=== PATIENT | female | born 2000 | race Caucasian/White ===

== ENCOUNTER 2024-02-19 02:35 | Emergency (ER) | payer MEDICAID ==
[~2024-02-19] VITALS: Ht 175.3 cm; Wt 131.0 kg
[2024-02-19 02:38] VITALS: BP 126/72; PULSE 100; RESP 16; TEMP 97.7
[2024-02-19] MEDS: IBUPROFEN 600 MG TABLET PO ONE (03:01)
[2024-02-19] MEDS: ACETAMINOPHEN 500 MG TABLET PO ONE (03:01)
[2024-02-19] MEDS: BACITRACIN 0.9 GM PACKET OINTMENT TP ONE (03:01)
== END 2024-02-19 03:27 | disposition home or self-care (01) ==
LOC: EMS 02:36
DX: S01.01XA Laceration without foreign body of scalp, initial encounter (principal); W22.8XXA Striking against or struck by other objects, initial encounter; Y93.89 Activity, other specified; Y92.89 Other specified places as the place of occurrence of the external cause; Y99.8 Other external cause status
CPT/HCPCS: 12001; 99283

== ENCOUNTER 2024-02-24 17:25 | Emergency (ER) | payer MEDICAID ==
[~2024-02-24] VITALS: Ht 175.3 cm; Wt 113.6 kg
[2024-02-24 17:35] VITALS: BP 105/61; PULSE 87; RESP 14; TEMP 98
== END 2024-02-24 19:12 | disposition home or self-care (01) ==
LOC: EMS 17:25
DX: S01.01XD Laceration without foreign body of scalp, subsequent encounter (principal); Z48.02 Encounter for removal of sutures; X58.XXXD Exposure to other specified factors, subsequent encounter
CPT/HCPCS: 99281; Z7502